=== PATIENT | female | born 2000 | race Caucasian/White ===

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

== ENCOUNTER 2021-03-09 20:33 | Emergency (ER) | payer BC, OTHER ==
[~2021-03-09] VITALS: Ht 157.5 cm; Wt 47.2 kg
[2021-03-09 21:11] VITALS: BP 121/83
[2021-03-09 21:15] LABS: Urine Bacteria FEW /hpf (None Seen); Urine Blood 1+ /uL (Negative); Urine Hyaline Cast FEW /lpf (0 - 2); Urine Specific Gravity 1.013 (1.001-1.035); Urine WBC 9 /hpf (0 - 5)
[2021-03-09 22:09] LABS: Basophils # (auto) 0 10 ^3/uL (0-0.2); Basophils % (auto) 0.3 % (0.0-2.0); Eosinophils # (auto) 0.1 10 ^3/uL (0-0.8); Eosinophils % (auto) 1.7 % (0.0-7.0); Hematocrit 40.6 % (36.0-46.0); Hemoglobin 13.7 g/dL (12.2-16.2); Lymphocytes # (auto) 3.2 10 ^3/uL (0.4-5.4); Lymphocytes % (auto) 42.1 % (10.0-50.0); Mean Corpuscular Hemoglobin 28.7 pg (28.0-32.0); Mean Corpuscular Hgb Conc. 33.9 g/dL (32.0-36.0); Mean Corpuscular Volume 84.6 fL (80.0-100.0); Monocytes # (auto) 0.5 10 ^3/uL (0-1.3); Monocytes % (auto) 6.9 % (0.0-12.0); Neutrophils # (auto) 3.7 10 ^3/uL (1.6-8.6); Nucleated Red Blood Cells % 0.1 %; Red Cell Distribution Width 14.7 % (11.8-14.3); White Blood Cell 7.6 10^3/uL (4.4-10.8)
[2021-03-09 22:13] LABS: Albumin 4.1 g/dL (3.4-5.0); Anion Gap 6 (5-15); Blood Urea Nitrogen 12 mg/dL (7-18); Calcium 9.5 mg/dL (8.5-10.1); Carbon Dioxide 27 mmol/L (21-32); Chloride 106 mmol/L (98-107); Glucose 93 mg/dL (74-106); Magnesium 2.3 mg/dL (1.6-2.6); Potassium 3.7 mmol/L (3.5-5.1); Sodium 139 mmol/L (136-145)
[2021-03-09 22:19] LABS: INR 1.03 (0.9-1.15); Partial Thromboplastin Time 30.4 sec (23.0-31.2)
[2021-03-09 22:24] LABS: Alanine Aminotransferase 34 U/L (13-56); Alkaline Phosphatase 84 U/L (45-117); Aspartate Aminotransferase 41 U/L (15-37); BUN/Creatinine Ratio 26.1; Bilirubin, Total 0.3 mg/dL (0.2-1.0); GFR African American 223 mL/min; GFR Non-African American 184 mL/min; Total Protein 7.8 g/dL (6.4-8.2)
[2021-03-09] MEDS ORDERED: LIDOCAINE VISCOUS 2% 15ML UD PO ONE (22:45)
[2021-03-09] MEDS ORDERED: ONDANSETRON ODT 4 MG TAB PO ONE (22:45)
[2021-03-09] MEDS ORDERED: ALUM & MAG HYDROX-SIMETH LIQ(MAALOX) 30 ML PO ONE (22:45)
[2021-03-09] MEDS ORDERED: DONNATAL 5ml ORAL Elix (BELLADONNA ALK-PHENOBARB) PO ONE (22:45)
== END 2021-03-10 01:05 | disposition home or self-care (01) ==
LOC: ER 20:33
DX: N39.0 Urinary tract infection, site not specified (principal); K59.00 Constipation, unspecified
CPT/HCPCS: 36415; 71046; 74176; 80053; 81001; 81025; 83735; 83880; 84443; 84484; 85025; 85610; 85730; 93005; 99285; Q0162

== ENCOUNTER 2023-06-28 07:52 | Emergency (ER) | payer BC, OTHER ==
[~2023-06-28] VITALS: Ht 157.5 cm; Wt 56.7 kg
[2023-06-28 08:02] VITALS: BP 113/63; PULSE 92; RESP 18; TEMP 97.8; O2SAT 97
[2023-06-28] MEDS ORDERED: DexAMETHasone SOD PHOS 10MG/1ML VIAL INJ IM ONE (09:15)
[2023-06-28] MEDS ORDERED: diphenhdrAMINE HCL 25 MG CAP PO ONE (09:15)
[2023-06-28] MEDS ORDERED: FAMOTIDINE 20 MG TAB PO ONE (09:15)
== END 2023-06-28 10:22 | disposition home or self-care (01) ==
LOC: ER 07:52
DX: L50.0 Allergic urticaria (principal); Z88.8 Allergy status to other drugs, medicaments and biological substances; Z88.2 Allergy status to sulfonamides
CPT/HCPCS: 96372; 99283; J1100